=== PATIENT | male | born 1945 | race Caucasian/White ===

== ENCOUNTER 2020-05-31 13:53 | Outpatient (CLI) | payer MEDICARE, OTHER, SELFPAY ==
--- NOTE | ~2020-05-31 | CT_ITS ---
EXAMINATION:CT lung screening DATE: 05/31/2020 14:20 INDICATION: Personal history of tobacco dependence. Former smoker with 60 pack year history. TECHNIQUE: Computed tomography (CT) of the chest was performed without intravenous contrast. Automate d exposure control and iterative reconstruction technique were employed. The dose-length product (DLP ) was 225.67 mGy-cm. COMPARISON: None. FINDINGS: There is no pulmonary nodule or pleural effusion. The heart size is normal. There are coron talia artery calcifications. No pericardial effusion. There are no pathologically enlarged lymph nodes. There are bridging endplate osteophytes at multiple levels in the spine, consistent with diffuse idi opathic skeletal hyperostosis (DISH). IMPRESSION: 1. Lung-RADS category 1: Negative. Reviewed, dictated and finalized at location A.
== END 2020-05-31 13:54 | disposition home or self-care (01) ==
LOC: ANHIMG 13:59
PROVIDERS: PCP Internal Medicine; Visit Provider Clinical Nurse Specialist
DX: Z12.2 Encounter for screening for malignant neoplasm of respiratory organs (principal); Z87.891 Personal history of nicotine dependence
CPT/HCPCS: G0297

== ENCOUNTER → 2020-11-17 10:53 | Outpatient (CLI) | payer MEDICARE, OTHER, SELFPAY ==
--- NOTE | ~2020-11-17 | US_ITS ---
EXAMINATION: US aorta DATE: 11/17/2020 11:12 INDICATION: Abdominal aortic aneurysm. TECHNIQUE: Grayscale, color Doppler, and pulsed Doppler images of the aorta and common iliac arteries were obtained. COMPARISON: Ultrasound 11/09/2019 FINDINGS: The aorta demonstrates a 4.8 cm fusiform infrarenal aneurysm. The right common iliac artery measures 2.0 cm. The left common iliac artery measures 1.7 cm. IMPRESSION: 1. 4.8 cm fusiform infrarenal aortic aneurysm, stable from 11/09/2019. Reviewed, dictated and finalized at location A. [employer]YMENT INSTRUCTIONAL ASSOCIATE
== END ==
PROVIDERS: PCP Internal Medicine; Visit Provider Internal Medicine Cardiovascular Disease
DX: I71.4 Abdominal aortic aneurysm, without rupture (principal); E78.2 Mixed hyperlipidemia; I10 Essential (primary) hypertension
CPT/HCPCS: 76775

== ENCOUNTER 2021-03-30 16:29 | Outpatient (CLI) | payer MEDICARE, OTHER, SELFPAY ==
--- NOTE | ~2021-03-30 | MR_ITS ---
EXAMINATION: MR lumbar spine wo con EXAM DATE: 03/30/2021 17:20 INDICATION: M54.40 - Lumbago with sciatica, unspecified side . Right-sided spasm and pain. TECHNIQUE: Multi-sequential, multiplanar MR images of the lumbar spine were obtained without contrast . Sagittal T1, T2, T2 fat saturation images. Axial T2 weighted images. There is no prior study for comparison. FINDINGS: Mild lumbar levoscoliosis. There is transitional lumbosacral segment designated S1 with a r udimentary S1-S2 disc. There is moderate disc disease at L1-2, mild to moderate at L2-3, moderate to severe L3-S1. There is 3 mm retrolisthesis L2 on L3, 4 mm retrolisthesis L3 on L4, 2 mm retrolisthesi s L4 on L5 and L5 on S1. Mild diffuse loss of lumbar vertebral body heights, with mild edema at the L 5 superior endplate which could indicate acute or subacute component to this compression. Lower abdom inal aortic aneurysm, imaged portion measuring by 5.1 cm transverse dimension. Level by level evaluation: L1-L2: There is a mild diffuse disc bulge. Facet arthropathy: Mild. Neural foraminal stenosis: Mild bilateral. Central canal stenosis: Mild. L2-L3: There is a mild to moderate diffuse disc bulge. Facet arthropathy: Mild. Neural foraminal stenosis: Mild to moderate left. Central canal stenosis: Mild. L3-L4: There is a moderate diffuse disc bulge. Facet arthropathy: Moderate . Ligamentum flavum enlargement. Neural foraminal stenosis: Moderate bilateral. Central canal stenosis: Moderate. L4-L5: There is a moderate diffuse disc bulge. Facet arthropathy: Moderate. Neural foraminal stenosis: Moderate bilateral, right greater than left. Central canal stenosis: Mild to moderate. L5-S1: There is a moderate diffuse disc bulge. Facet arthropathy: Moderate. Neural foraminal stenosis: Moderate bilateral. Central canal stenosis: Moderate. IMPRESSION: 1. Mild loss of all vertebral body heights with L5 right-sided edema could indicate acute or subacut e compression fracture. 2. Incidental abdominal aortic aneurysm measuring 5.1 cm, correlate with prior ultrasound reports. 3. Moderate to severe lower lumbar disc disease, spondylosis as detailed above. Reviewed, dictated and finalized at location B. IMPRESSION: 1. Mild loss of all vertebral body heights with L5 right-sided edema could ind icate acute or subacute compression fracture. 2. Incidental abdominal aortic aneurysm measuring 5.1 cm, correlate with prior ultrasound reports. 3. Moderate to severe lower lumbar disc disease, spondylosis as detailed above .
== END 2021-03-30 16:30 | disposition home or self-care (01) ==
LOC: ANHIMG 16:42
PROVIDERS: PCP Internal Medicine; Visit Provider Nurse Practitioner
DX: M54.40 Lumbago with sciatica, unspecified side (principal); M51.36 Other intervertebral disc degeneration, lumbar region; M47.896 Other spondylosis, lumbar region
CPT/HCPCS: 72148

== ENCOUNTER 2021-11-28 07:36 | Outpatient (CLI) | payer MEDICARE, OTHER, SELFPAY ==
--- NOTE | ~2021-11-28 | US_ITS ---
EXAMINATION: US aorta DATE: 11/28/2021 08:29 INDICATION: Abdominal aortic aneurysm. TECHNIQUE: Grayscale, color Doppler, and pulsed Doppler images of the aorta and common iliac arteries were obtained. COMPARISON: Ultrasound 11/17/2020, lumbar spine MRI 03/30/2021 FINDINGS: The aorta demonstrates a 4.9 cm fusiform infrarenal aneurysm. The right common iliac artery measures 1.6 cm. The left common iliac artery measures 1.5 cm. IMPRESSION: 1. 4.9 cm fusiform infrarenal aortic aneurysm, stable from 11/17/2020. Reviewed, dictated and finalized at location A. WAY SIGNAL OPERATOR
== END 2021-11-28 07:37 | disposition home or self-care (01) ==
LOC: ANHIMG 07:40
PROVIDERS: PCP Internal Medicine; Visit Provider Internal Medicine Cardiovascular Disease
DX: I71.4 Abdominal aortic aneurysm, without rupture (principal)
CPT/HCPCS: 76775

== ENCOUNTER 2021-12-27 13:23 | Outpatient (CLI) | payer MEDICARE, OTHER, SELFPAY ==
--- NOTE | ~2021-12-27 | CT_ITS ---
EXAMINATION:CT lung screening DATE: 12/27/2021 13:44 INDICATION: Personal history of nicotine dependence. 60 pack year history. TECHNIQUE: Computed tomography (CT) of the chest was performed without intravenous contrast. Automate d exposure control and iterative reconstruction technique were employed. The dose-length product (DLP ) was 324.57 mGy-cm. COMPARISON: Chest CT 05/31/2020 FINDINGS: Again seen is a 4 mm nodule at minor fissure. There is no pneumonia or pleural effusion. Th ere is left atrial enlargement of the heart. There are coronary artery calcifications. No pericardial effusion. There is 14 degrees dextroscoliosis of upper thoracic spine. There are bridging endplate o steophytes at multiple levels in the spine, consistent with diffuse idiopathic skeletal hyperostosis (DISH). IMPRESSION: 1. Lung-RADS category 2: Benign appearance or behavior. Reviewed, dictated and finalized at location A.
== END 2021-12-27 13:24 | disposition home or self-care (01) ==
LOC: ANHIMG 13:28
PROVIDERS: PCP Internal Medicine; Visit Provider Nurse Practitioner
DX: Z87.891 Personal history of nicotine dependence (principal)
CPT/HCPCS: 71271

== ENCOUNTER → 2022-11-22 11:28 | Outpatient (CLI) | payer MEDICARE, OTHER, SELFPAY ==
--- NOTE | ~2022-11-22 | XR_ITS ---
AP and lateral views of the left scapula CLINICAL HISTORY: Scapular pain FINDINGS: No fracture identified. There is moderate to advanced degenerative change at the AC joint. Glenohumeral joint is grossly unremarkable. Soft tissues are unremarkable. IMPRESSION: Moderate to advanced AC joint degenerative change. No fracture or dislocation seen. Reviewed, dictated and finalized at [facility]. [facility]
== END ==
PROVIDERS: PCP Nurse Practitioner; Visit Provider Clinical Nurse Specialist
DX: M19.012 Primary osteoarthritis, left shoulder (principal)
CPT/HCPCS: 73010

== ENCOUNTER 2022-12-24 09:05 | Outpatient (CLI) | payer MEDICARE, OTHER, SELFPAY ==
--- NOTE | ~2022-12-24 | US_ITS ---
EXAMINATION: US aorta DATE: 12/24/2022 09:43 INDICATION: Abdominal aortic aneurysm TECHNIQUE: Grayscale, color Doppler, and pulsed Doppler images of the aorta and common iliac arteries were obtained. COMPARISON: None. FINDINGS: The proximal aorta measures 2.9 cm. The mid aorta measures 2.7 cm. Fusiform aneurysm in the distal ao rta measuring up to 4.9 cm maximal diameter. The right common iliac artery measures 1.6 cm. The left common iliac artery measures 1.5 cm. IMPRESSION: 1. No interval change in a 4.9 cm fusiform infrarenal abdominal aortic aneurysm Reviewed, dictated and finalized at location B.
== END 2022-12-24 09:06 | disposition home or self-care (01) ==
PROVIDERS: PCP Internal Medicine; Visit Provider Internal Medicine Cardiovascular Disease
DX: I71.40 Abdominal aortic aneurysm, without rupture, unspecified (principal)
CPT/HCPCS: 76775

== ENCOUNTER 2023-04-26 13:27 | Outpatient (CLI) | payer MEDICARE, OTHER, SELFPAY ==
--- NOTE | ~2023-04-26 | CT_ITS ---
EXAMINATION: CT lung screening DATE: 04/26/2023 14:46 INDICATION: Personal history of nicotine dependence, prior smoker with 60 pack year history TECHNIQUE: Computed tomography (CT) of the chest was performed without intravenous contrast. The dose -length product (DLP) was 387.92 mGy-cm. Automated exposure control and iterative reconstruction tech [employer] were employed. COMPARISON: 12/27/2021 FINDINGS: Again noted is a 4 mm fissural lymph node of the minor fissure. No suspicious pulmonary nod ules are identified. The lungs are free of acute opacities. No pleural effusion or pneumothorax. Ther e is left atrial enlargement of the heart. Calcified coronary artery atherosclerosis is noted. There are bridging osteophytes at multiple levels in the spine, consistent with diffuse idiopathic skeletal hyperostosis (DISH). IMPRESSION: 1. Lung-RADS category 2: Benign appearance or behavior. Continue annual screening with noncontrast lo w-dose chest CT in 12 months. Reviewed, dictated and finalized at location B. IMPRESSION: 1. Lung-RADS category 2: Benign appearance or behavior. Continue annual screeni ng with noncontrast low-dose chest CT in 12 months.
== END 2023-04-26 13:28 | disposition home or self-care (01) ==
PROVIDERS: PCP Internal Medicine; Visit Provider Nurse Practitioner
DX: Z12.2 Encounter for screening for malignant neoplasm of respiratory organs (principal); Z87.891 Personal history of nicotine dependence
CPT/HCPCS: 71271

== ENCOUNTER 2024-01-29 09:29 | Outpatient (CLI) | payer MEDICARE, OTHER, SELFPAY ==
--- NOTE | ~2024-01-29 | US_ITS ---
EXAMINATION: US aorta DATE: 01/29/2024 10:56 CDT INDICATION: Abdominal aortic aneurysm TECHNIQUE: Grayscale, color Doppler, and pulsed Doppler images of the aorta and common iliac arteries were obtained. COMPARISON: Ultrasound dated 12/24/2022. FINDINGS: The proximal aorta measures 2.8 cm greatest sagittal dimension. The mid aorta measures 2.9 cm greates t sagittal dimension. The distal aorta measures 5.1 cm greatest sagittal dimension. The right common internal iliac artery measures 1.5 cm. The left common iliac artery measures 1.5 cm. IMPRESSION: 1. Slight enlargement of fusiform infrarenal abdominal aortic aneurysm measuring 5.1 cm. Reviewed, dictated and finalized at location B. IMPRESSION: 1. Slight enlargement of fusiform infrarenal abdominal aortic aneurysm measurin g 5.1 cm.
== END 2024-01-29 09:30 | disposition home or self-care (01) ==
PROVIDERS: PCP Internal Medicine; Visit Provider Internal Medicine Cardiovascular Disease
DX: I71.40 Abdominal aortic aneurysm, without rupture, unspecified (principal)
CPT/HCPCS: 76775

== ENCOUNTER 2024-06-17 12:48 | Outpatient (CLI) | payer MEDICARE, OTHER, SELFPAY ==
--- NOTE | ~2024-06-17 | XR_ITS ---
Lumbosacral Spine: AP, oblique, and lateral views Clinical History: Pain Findings: The normal lordotic curve is maintained. No fracture evident. There is 6 mm retrolisthesis of L2 over L3. There is severe degenerative disc 9 L2-L3, with moderate degenerative disc narrowing t he remainder of the lumbar spine. There are extensive anterior ossified. There is severe facet arthro loreto throughout the lumbar spine. The sacroiliac joints are normally outlined. Aortic stent graft pr esent. Impression: Severe degenerative spondylosis with 6 mm retrolisthesis of L2 over L3. Aortic stent graft in place. Reviewed, dictated and finalized at location . Impression: Severe degenerative spondylosis with 6 mm retrolisthesis of L2 over L3. Aortic stent graft in place.
== END 2024-06-17 12:49 | disposition home or self-care (01) ==
PROVIDERS: PCP Internal Medicine; Visit Provider Nurse Practitioner
DX: M47.896 Other spondylosis, lumbar region (principal)
CPT/HCPCS: 72110

== ENCOUNTER 2024-07-08 02:43 | Day surgery (SDC) | payer MEDICARE, OTHER, SELFPAY ==
[2024-06-30 12:21] VITALS: BMI 34.4
--- NOTE | 2024-06-30 13:07 | PC.NURSE ---
Spoke with PATIENT regarding medication XARELTO. Pt. verbalizes understanding that the last dose of XARELTO is to be taken on 07/05/24 and the Endoscopist will instruct them when to restart after the procedure.
--- NOTE | 2024-07-03 14:19 | PC.NURSE ---
Spoke with patient regarding medication Xarelto. Pt. verbalizes understanding that the last dose of Xarelto is to be taken on 07/05/2024 and the Endoscopist will instruct them when to restart after the procedure.
[2024-07-08 10:20] VITALS: BP 134/78; PULSE 91; RESP 18; TEMP 36.2; O2SAT 97; BMI 34.0
[2024-07-08] MEDS: LACTATED RINGERS 1,000 ML 150 ML IV CONT (10:40)
[2024-07-08 10:49] LABS: Glucose Point of Care 167 mg/dl (65-105)
--- NOTE | 2024-07-08 10:50 | PM.HPGS ---
History of Present Illness History of Present Illness Consent: Risks, benefits, and alternatives have been discussed and questions answered. Patient agrees to proceed with procedure. 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 Type 2 diabetes mellitus Vertigo Surgical History Surgical History H/O cataract extraction History of bunionectomy 2002 History of cardiac cath (~04/2024) 05/06/24 History of hip replacement S/P aneurysm repair with 3 stents 06/01/24 Family History Family History Mother Family history of throat cancer Father Cerebrovascular accident Sibling Dementia Social History Social History Smoking packs per day: 1.5 Smoking cigarettes per day: 30.0 Years smoked: 33 Smoking pack-years: 49.50 Smoking status: Former smoker Smoking end date: 10/14/97 Alcohol intake: current Drinks per week: 14 Alcohol use details: BEERS OR WINE Substance use: never Substance use type: does not use Living arrangements: with family Spiritual care concerns: No Meds Home Medications and Allergies Home Medications Medication Instructions Recorded Confirmed Type cyanocobalamin (vitamin B-12) 1,000 mcg PO DAILY 10/02/19 07/08/24 History 1,000 mcg capsule rivaroxaban 20 mg tablet (Xarelto) 20 mg PO QPM 10/02/19 07/08/24 History acetaminophen 325 mg tablet 650 mg PO Q6H PRN Pain 03/22/21 07/08/24 History (Tylenol) FreeStyle Lite Strips (blood sugar #100 ea 05/09/22 07/08/24 Rx diagnostic) hydrochlorothiazide 25 mg tablet See Rx Instructions .Route 09/04/22 07/08/24 Rx .COMPLEX #90 tabs metformin 1,000 mg tablet See Rx Instructions .Route 01/04/23 07/08/24 Rx .COMPLEX #180 tabs amlodipine 5 mg tablet 5 mg PO DAILY #90 tabs 04/04/23 07/08/24 Rx lisinopril 40 mg tablet See Rx Instructions .Route 06/21/23 07/08/24 Rx .COMPLEX #90 tabs cholecalciferol (vitamin D3) 25 25 mcg PO DAILY 08/26/23 07/08/24 History mcg (1,000 unit) capsule ezetimibe 10 mg tablet 10 mg PO DAILY 10/23/23 07/08/24 History simvastatin 40 mg tablet 40 mg PO DAILY 10/23/23 07/08/24 History pioglitazone 15 mg tablet 15 mg PO DAILY 02/26/24 07/08/24 History cyclobenzaprine 10 mg tablet 10 mg PO BID PRN muscle spasm #30 06/18/24 07/08/24 Rx tabs sulfamethoxazole 800 1 tablet PO Q12H #10 tabs 06/29/24 07/08/24 Rx mg-trimethoprim 160 mg tablet (Bactrim DS) empagliflozin 25 mg tablet 25 mg PO DAILY 06/30/24 07/08/24 History (Jardiance) sildenafil 100 mg tablet (Viagra) 100 mg PO DAILY PRN Sexual Activity 06/30/24 07/08/24 History Allergies Allergy/AdvReac Type Severity Reaction Status Date / Time No Known Allergies Allergy Verified 07/08/24 10:23 Vital Signs Vital Signs - 24 hr 07/08/24 10:20 Temperature 97.1 F L Pulse Rate 91 Respiratory Rate 18 Blood Pressure 134/78 Pulse Oximetry 97 Oxygen Delivery Room Air Exam Const: General: comfortable and no acute distress HENMT: Face/Nose/Sinus: Normal nares present Eyes: General: appearance normal, both eyes and all related structures Neck: Neck: no JVD Resp: Auscultation: clear to auscultation bilaterally Cardio: Rate: regular rate Rhythm: regular rhythm GI: Inspection: non-distended GI Palp: Yes Soft to palpation Skin: General skin exam: normal color Neuro: General: ga
--- NOTE | 2024-07-08 10:52 | WPDANESEPPF ---
Anes - Initial Pre Proc Eval Procedure: Operation Date: 07/08/24 11:30 Proposed Procedures p Screening Colonoscopy - Surinder Funez MD Date/Time: 07/08/24 10:52 Surgeon: Surinder Funez MD Pre Op Diagnosis: neoplasm screening Patient Data Age: 78 Gender: M Height: 1.78 m Weight: 107.4 kg Last Vital Signs Temp 97.1 F L 07/08/24 10:20 Pulse 91 07/08/24 10:20 Resp 18 07/08/24 10:20 BP 134/78 07/08/24 10:20 Pulse Ox 97 07/08/24 10:20 O2 Del Method Room Air 07/08/24 10:20 Allergies Allergy/AdvReac Type Severity Reaction Status Date / Time No Known Allergies Allergy Verified 07/08/24 10:23 Home Medications Medication Instructions Recorded Confirmed Type cyanocobalamin (vitamin B-12) 1,000 mcg PO DAILY 10/02/19 07/08/24 History 1,000 mcg capsule rivaroxaban 20 mg tablet (Xarelto) 20 mg PO QPM 10/02/19 07/08/24 History acetaminophen 325 mg tablet 650 mg PO Q6H PRN Pain 03/22/21 07/08/24 History (Tylenol) FreeStyle Lite Strips (blood sugar #100 ea 05/09/22 07/08/24 Rx diagnostic) hydrochlorothiazide 25 mg tablet See Rx Instructions .Route 09/04/22 07/08/24 Rx .COMPLEX #90 tabs metformin 1,000 mg tablet See Rx Instructions .Route 01/04/23 07/08/24 Rx .COMPLEX #180 tabs amlodipine 5 mg tablet 5 mg PO DAILY #90 tabs 04/04/23 07/08/24 Rx lisinopril 40 mg tablet See Rx Instructions .Route 06/21/23 07/08/24 Rx .COMPLEX #90 tabs cholecalciferol (vitamin D3) 25 25 mcg PO DAILY 08/26/23 07/08/24 History mcg (1,000 unit) capsule ezetimibe 10 mg tablet 10 mg PO DAILY 10/23/23 07/08/24 History simvastatin 40 mg tablet 40 mg PO DAILY 10/23/23 07/08/24 History pioglitazone 15 mg tablet 15 mg PO DAILY 02/26/24 07/08/24 History cyclobenzaprine 10 mg tablet 10 mg PO BID PRN muscle spasm #30 06/18/24 07/08/24 Rx tabs sulfamethoxazole 800 1 tablet PO Q12H #10 tabs 06/29/24 07/08/24 Rx mg-trimethoprim 160 mg tablet (Bactrim DS) empagliflozin 25 mg tablet 25 mg PO DAILY 06/30/24 07/08/24 History (Jardiance) sildenafil 100 mg tablet (Viagra) 100 mg PO DAILY PRN Sexual Activity 06/30/24 07/08/24 History Laboratory Tests 07/08/24 10:47 POC Capillary Glucose 167 H mg/dl (65-105) Patient hx anesthesia problems: none Family hx anesthesia problems: none Results Review: All pre-operative results and documents have been reviewed as part of the pre-operative evaluation. 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 Type 2 diabetes mellitus Vertigo Surgical History Surgical History H/O cataract extraction History of bunionectomy 2002 History of cardiac cath (~04/2024) 05/06/24 History of hip replacement S/P aneurysm repair with 3 stents 06/01/24 Family History Family History Mother Family history of throat cancer Father Cerebrovascular accident Sibling Dementia Social History Social History Smoking packs per day: 1.5 Smoking cigarettes per day: 30.0 Years smoked: 33 Smoking pack-years: 49.50 Smoking status: Former smoker Smoking end date: 10/14/97 Alcohol intake: current Drinks per week: 14 Alcohol use details: BEERS OR WINE Substance use: never Substance use type: does not use Living arrangements: with family Spiritual care concerns: No Anes - Eval Final PreProcedure Day of Procedure 07/08/24 10:53 Patient weight: obese Heart: regular rate and rhythm Lungs: clear to auscultation Airway: Mallampati scale class II Neurological: alert and oriented Last oral intake: >/
[2024-07-08 11:16] VITALS: BP 121/74; PULSE 82; RESP 11; O2SAT 97
[2024-07-08 11:26] VITALS: BP 115/75; PULSE 79; RESP 18; O2SAT 98
[2024-07-08 11:36] VITALS: BP 125/87; PULSE 79; RESP 17; O2SAT 98
== END 2024-07-08 12:00 | disposition home or self-care (01) ==
PROVIDERS: PCP Internal Medicine; Referring Provider Nurse Practitioner; Visit Provider Internal Medicine Gastroenterology
PROC: 0DJD8ZZ Inspection of Lower Intestinal Tract, Via Natural or Artificial Opening Endoscopic (ICD-10-PCS; CPT 45378; principal; 2024-07-08 11:30)
DX: Z12.11 Encounter for screening for malignant neoplasm of colon (principal); D12.3 Benign neoplasm of transverse colon; K57.30 Diverticulosis of large intestine without perforation or abscess without bleeding; I48.91 Unspecified atrial fibrillation; E78.5 Hyperlipidemia, unspecified; I10 Essential (primary) hypertension; E11.9 Type 2 diabetes mellitus without complications; Z95.1 Presence of aortocoronary bypass graft; Z87.891 Personal history of nicotine dependence; E66.9 Obesity, unspecified; Z68.34 Body mass index [BMI] 34.0-34.9, adult; Z79.84 Long term (current) use of oral hypoglycemic drugs; Z79.01 Long term (current) use of anticoagulants
CPT/HCPCS: 45385; 82948; 88305; J2001; J2704; J7120

== ENCOUNTER 2024-11-25 11:53 | Emergency (ER) | payer MEDICARE, OTHER, SELFPAY ==
--- NOTE | 2024-11-25 12:02 | ED.URI ---
HPI - URI/Sore Throat General Chief Complaint: Upper Respiratory Infection Stated Complaint: Upper Respiratory Symptoms Time Seen by Provider: 11/25/24 12:02 Source: patient and RN notes reviewed Mode of arrival: ambulatory Limitations: no limitations History of Present Illness HPI Narrative: 78-year-old male history of AFib and diabetes presented for complaint of cough and chest congestion for over one week. Endorses fatigue, wheezing, and pain in ribs from coughing. Pt also endorses intermittent vomiting has resolved. Taking Dayquil and Mucinex. MD elicited complaint: cough Related Data Home Medications ?Medication ?Instructions ?Recorded ?Confirmed ?Last Taken ?Type cyanocobalamin (vitamin B-12) 1,000 mcg PO DAILY 10/02/19 11/03/24 Unknown History 1,000 mcg capsule rivaroxaban 20 mg tablet (Xarelto) 20 mg PO QPM 10/02/19 11/03/24 07/05/24 History acetaminophen 325 mg tablet 650 mg PO Q6H PRN Pain 03/22/21 11/03/24 Unknown History (Tylenol) cholecalciferol (vitamin D3) 25 25 mcg PO DAILY 08/26/23 11/03/24 Unknown History mcg (1,000 unit) capsule ezetimibe 10 mg tablet 10 mg PO DAILY 10/23/23 11/03/24 Unknown History simvastatin 40 mg tablet 40 mg PO DAILY 10/23/23 11/03/24 Unknown History pioglitazone 15 mg tablet 15 mg PO DAILY 02/26/24 11/03/24 Unknown History empagliflozin 25 mg tablet 25 mg PO DAILY 06/30/24 11/03/24 Unknown History (Jardiance) sildenafil 100 mg tablet (Viagra) 100 mg PO DAILY PRN Sexual Activity 06/30/24 11/03/24 Unknown History Allergies Allergy/AdvReac Type Severity Reaction Status Date / Time No Known Allergies Allergy Verified 11/25/24 11:55 Review of Systems Review of Systems: per HPI [facility] Past Medical History Medical History 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 Vertigo Back pain Atrial fibrillation Type 2 diabetes mellitus Hypertension Hyperlipidemia Surgical History Surgical History S/P aneurysm repair with 3 stents 06/01/24 History of cardiac cath (~04/2024) 05/06/24 H/O cataract extraction History of hip replacement History of bunionectomy BL 2002 Family History Family History Mother Family history of throat cancer Father Cerebrovascular accident Sibling Dementia Social History Social History Smoking packs per day: 1.5 Smoking cigarettes per day: 30.0 Years smoked: 33 Smoking pack-years: 49.50 Smoking status: Former smoker Smoking end date: 10/14/97 Alcohol intake: current Drinks per week: 14 Alcohol use details: BEERS OR WINE Substance use: never Substance use type: does not use Living arrangements: with family Spiritual care concerns: No Exam Narrative: GENERAL: mildly ill-appearing EYES: PERRLA, conjunctivae clear ENT: Mucous membranes moist. TM pearly hebert with dull light reflex bilaterally; no tragal tenderness. no drooling, no hoarseness, no trismus, uvula midline. No tripod positioning, muffled voice, soft palate or pharyngeal wall bulging NECK: Supple. No lymphadenopathy CHEST: Lungs coarse with scattered wheezing. No respiratory distress, speaks in full sentences. Even and unlabored. HEART: Regular rate and rhythm. No murmur heard. SKIN: Warm, dry, no rash. NEURO: Alert and oriented x3. PSYCH: Normal mood and affect Course Course Emergency Course: Patient is aware of diagnosis, understands and agrees to treatment plan. Anticipatory guidance given. Patient agrees to follow-up as directed and is aware of reasons to seek care at the emergency department. Portions of this record may have been created with voice recognition software Level of Care: Express Care Visit Vital Signs Vital signs: Vital Signs Temperature 98.2 F 11/25/24 12:04 Pulse Rate 82 11/25/24 12:04 Respiratory Rate 16 11/25/24 12:04 Blood Pressure 118/74 11/25/24 12:04 Pulse Oximetry 98 11/25/24 12:04 Temperature 98.2 F 11/25/24 12:04 Pulse Rate 82 11/25/24 12:04 Respiratory Rate 16 11/25/24 12:04 Blood Pressure 118/74 11/25/24 12:04 Pulse Oximetry 98 11/25/24 12:04 reviewed MDM - URI/Sore Throat MDM Narrative Medical decision making narrative: Discussed physical exam findings, reviewed RX. Aware prednisone may increase BS. Advised supportive measures and signs/symptoms to go to the ER. Pt is appropriate for outpt treatment and f/u. Differential Diagnosis Differential diagnosis: Likely upper respiratory infection, sinusitis, viral infection and bronchitis Discharge Plan Discharge Clinical Impression: Bronchitis Patient Disposition: Home, Self-Care Condition: Stable Instructions: Antibiotic Form, Acute Bronchitis (ED) Additional Instructions: Acute bronchitis can be contagious because it is usually caused by infection with a virus or bacteria. It is usually for a few days but you can be contagious for up to one week. Avoid crowds until you do not have a fever and symptoms are improved Take medication as directed Albuterol inhaler every 4-6 hours for shortness of breath/wheezing Flonase spray and Zyrtec (or Claritin/Josi) for nasal congestion/drainage over the counter Cough syrup may cause drowsiness; avoid driving or take it at night time. Coricidin HBP if you have hypertension Tylenol 1000mg every 8 hours as needed for pain Rest, fluids, and increase humidity of the air at home. Follow up with your primary care provider as needed Go to the ER for worsening symptoms or concerns Patient Language: Zimbabwean Prescriptions: New benzonatate 200 mg capsule 200 mg PO TID PRN (Reason: cough) Qty: 20 0RF prednisone 50 mg tablet 50 mg PO DAILY Qty: 5 0RF albuterol sulfate 90 mcg/actuation HFA aerosol inhaler 2 inh inhalation QID PRN (Reason: shortness of breath or wheezing) Qty: 8.5 0RF No Action cyanocobalamin (vitamin B-12) 1,000 mcg capsule 1,000 mcg PO DAILY Xarelto 20 mg tablet 20 mg PO QPM acetaminophen [Tylenol] 325 mg tablet 650 mg PO Q6H MDD \ PRN (Reason: Pain) cholecalciferol (vitamin D3) 25 mcg (1,000 unit) capsule 25 mcg PO DAILY pioglitazone 15 mg tablet 15 mg PO DAILY simvastatin 40 mg tablet 40 mg PO DAILY ezetimibe 10 mg tablet 10 mg PO DAILY sildenafil [Viagra] 100 mg Tablet 100 mg PO DAILY PRN (Reason: Sexual Activity) Rx Instructions: administer 30 minutes to 4 hours before activity Jardiance 25 mg Tablet 25 mg PO DAILY (DME) FreeStyle Lite Strips Strip See Rx Instructions .ROUTE .MEDSUPPLY Qty: 100 3RF Rx Instructions: Use to test BS BID hydrochlorothiazide 25 mg tablet See Rx Instructions .ROUTE .COMPLEX Qty: 90 3RF Dose Instruction: TAKE 1 TABLET DAILY Rx Instructions: TAKE 1 TABLET DAILY metformin 1,000 mg tablet See Rx Instructions .ROUTE .COMPLEX Qty: 180 1RF Dose Instruction: TAKE 1 TABLET TWICE A DAY Rx Instructions: TAKE 1 TABLET TWICE A DAY amlodipine 5 mg tablet 5 mg PO DAILY Qty: 90 1RF lisinopril 40 mg tablet See Rx Instructions .ROUTE .COMPLEX Qty: 90 1RF Dose Instruction: TAKE 1 TABLET DAILY Rx Instructions: TAKE 1 TABLET DAILY cyclobenzaprine 10 mg tablet 10 mg PO BID PRN (Reason: muscle spasm) Qty: 30 1RF Follow-up/Referrals: PHYSICIAN,[employer]TER[employer] INSPECTOR [employer] TE[employer] [Primary Care Provider] - Time of Disposition: 12:15
[2024-11-25 12:04] VITALS: BP 118/74; PULSE 82; RESP 16; TEMP 36.8; O2SAT 98
== END 2024-11-25 12:18 | disposition home or self-care (01) ==
PROVIDERS: Emergency Provider Nurse Practitioner Family
DX: J40 Bronchitis, not specified as acute or chronic (principal); Z87.891 Personal history of nicotine dependence; I48.91 Unspecified atrial fibrillation; E11.9 Type 2 diabetes mellitus without complications; Z79.84 Long term (current) use of oral hypoglycemic drugs; I10 Essential (primary) hypertension; E78.5 Hyperlipidemia, unspecified; I25.10 Atherosclerotic heart disease of native coronary artery without angina pectoris
CPT/HCPCS: 99213; G0463

== ENCOUNTER 2024-12-08 11:40 | Emergency (ER) | payer MEDICARE, OTHER, SELFPAY ==
[2024-12-08 11:52] VITALS: BP 103/64; PULSE 87; RESP 16; TEMP 36.6; O2SAT 100
--- NOTE | 2024-12-08 12:43 | ED_ITS ---
HPI - Male Genitourinary General Chief complaint: Urogenital-Male Stated complaint: Uti Symptoms Source: patient and RN notes reviewed Mode of arrival: ambulatory Limitations: no limitations History of Present Illness HPI Narrative: 78-year-old male with a history of AFib and diabetes presented for complaint of urinary frequency, hematuria, and chills. Says he is scheduled to have urology procedure for chronic hematuria on 12/15/2024. Endorses occasional urinary incontinence. at bedside also reports he has ?bedsores. ? They have been applying cream from family who also had bedsores. Denies nausea, vomiting, abdominal pain, flank pain, constipation, diarrhea, fevers or chills. Related Data Home Medications ?Medication ?Instructions ?Recorded ?Confirmed ?Last Taken ?Type cyanocobalamin (vitamin B-12) 1,000 mcg PO DAILY 10/02/19 12/07/24 Unknown History 1,000 mcg capsule rivaroxaban 20 mg tablet (Xarelto) 20 mg PO QPM 10/02/19 12/07/24 07/05/24 History acetaminophen 325 mg tablet 650 mg PO Q6H PRN Pain 03/22/21 12/07/24 Unknown History (Tylenol) cholecalciferol (vitamin D3) 25 25 mcg PO DAILY 08/26/23 12/07/24 Unknown History mcg (1,000 unit) capsule ezetimibe 10 mg tablet 10 mg PO DAILY 10/23/23 12/07/24 Unknown History simvastatin 40 mg tablet 40 mg PO DAILY 10/23/23 12/07/24 Unknown History pioglitazone 15 mg tablet 15 mg PO DAILY 02/26/24 12/07/24 Unknown History empagliflozin 25 mg tablet 25 mg PO DAILY 06/30/24 12/07/24 Unknown History (Jardiance) sildenafil 100 mg tablet (Viagra) 100 mg PO DAILY PRN Sexual Activity 06/30/24 12/07/24 Unknown History Allergies Allergy/AdvReac Type Severity Reaction Status Date / Time No Known Allergies Allergy Verified 12/08/24 11:53 Review of Systems Review of Systems: CONSTITUTIONAL: Denies body aches, fever, chills, or sweats. CARDIOVASCULAR: Denies chest pain, palpitations, or edema. RESPIRATORY: Denies cough or dyspnea. GASTROINTESTINAL: Denies abdominal pain, nausea, vomiting, or diarrhea. GENITOURINARY: Reports frequency, urgency, hematuria, denies flank pain SKIN: Reports wounds. MUSCULOSKELETAL: Denies back pain or myalgia. 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 Vertigo Back pain Atrial fibrillation Type 2 diabetes mellitus Hypertension Hyperlipidemia Surgical History Surgical History S/P aneurysm repair with 3 stents 06/01/24 History of cardiac cath (~04/2024) 05/06/24 H/O cataract extraction History of hip replacement History of bunionectomy 2002 Family History Family History Mother Family history of throat cancer Father Cerebrovascular accident Sibling Dementia Social History Social History Smoking packs per day: 2 Smoking cigarettes per day: 40.0 Years smoked: 33 Smoking pack-years: 66.00 Smoking status: Former smoker Tobacco type: cigarettes Smoking end date: 10/14/97 Alcohol intake: current Drinks per week: 10 Alcohol use details: WINE AND BEER Substance use: never Substance use type: does not use Living arrangements: with family Spiritual care concerns: No Comments At time of signature, I have reviewed and agree with nursing past medical, surgical, social and family history unless otherwise noted. Please see nursing chart for further information. There is no relevant family history pertinent to the presenting complaint Exam Narrative: GENERAL: Well-appearing ENT: Mucous membranes pink and moist. CHEST: No respiratory distress. Clear to auscultation. HEART: Regular rate and rhythm. ABDOMEN: Soft, nontender, nondistended, normal active bowel sounds. No CVA tenderness SKIN: Warm, dry, left medial buttock with 1cm round area of ulcerated skin consistent with stage II pressure ulcer, no bleeding, Skin to coccyx and buttocks appears red. Left buttock with 2 reddened non blanching round areas approx 3cm diameter. NEURO: No focal deficits. Alert and oriented x3. Gait steady with a cane. PSYCH: Normal affect. . Course Course Emergency Course: Patient is aware of diagnosis, understands and agrees to treatment plan. Anticipatory guidance given. Patient agrees to follow-up as directed and is aware of reasons to seek care at the emergency department. Portions of this record may have been created with voice recognition software Level of Care: Express Care Visit Vital Signs Vital signs: Vital Signs Temperature 97.8 F 12/08/24 11:52 Pulse Rate 87 12/08/24 11:52 Respiratory Rate 16 12/08/24 11:52 Blood Pressure 103/64 12/08/24 11:52 Pulse Oximetry 100 12/08/24 11:52 Temperature 97.8 F 12/08/24 11:52 Pulse Rate 87 12/08/24 11:52 Respiratory Rate 16 12/08/24 11:52 Blood Pressure 103/64 12/08/24 11:52 Pulse Oximetry 100 12/08/24 11:52 Reviewed MDM - Male Genitourinary MDM Narrative Medical decision making narrative: Discussed physical exam findings, supportive care for pressure ulcers and reviewed urine dip. Prescription for Augmentin sent. Advise close follow-up with PCP regarding the pressure ulcer and with Urology regarding UTI. Advised supportive measures and signs/symptoms to go to the ER. Pt is appropriate for outpt treatment and f/u. Differential Diagnosis Differential diagnosis: Likely urinary tract infection and urethritis Lab Data Labs: Lab Results 12/08/24 Range/Units 13:43 POC Urine Color Yellow POC Urine Clarity Cloudy POC Urine pH 5.5 POC Ur Specif [place] 1.020 POC Urine Protein 2+ (Negative) POC Ur Glucose (UA) 2+ (Negative) POC Urine Ketones 2+ (Negative) POC Urine Blood 2+ (Negative) POC Urine Nitrite Positive (Negative) POC Urine Bilirubin Negative (Negative) POC Urine Urobilinogen 0.2 POC U Leukocyte Esteras 1+ (Negative) Discharge Plan Discharge Clinical Impression: UTI (urinary tract infection), Pressure ulcer Patient Disposition: Home, Self-Care Condition: Stable Instructions: Antibiotic Form, Urinary Tract Infection in Men (ED), Pressure I njury (ED) Additional Instructions: Take the antibiotic as prescribed The urine will be sent of for a culture to identify what type of bacteria is causing your infection. If the culture shows that the antibiotic will not get rid of your infection, you will be notified and a new antibiotic will be called in for you. Increase water intake For skin: Remember to stay off the center when seated. Turn or lift hips every 2 hours Continue the cream Keep skin clean and dry you will need to follow up with your PCP, to discuss skin wounds You will need to follow up with urologist, call today. Go to the ER for any worsening symptoms or concerns Patient Language: Egyptian Prescriptions: New amoxicillin-pot clavulanate 875-125 mg tablet 1 tablet PO Q12H 7 Days Qty: 14 0RF No Action benzonatate 200 mg capsule 200 mg PO TID PRN (Reason: cough) Qty: 20 0RF albuterol sulfate 90 mcg/actuation HFA aerosol inhaler 2 inh inhalation QID PRN (Reason: shortness of breath or wheezing) Qty: 8.5 0RF cyanocobalamin (vitamin B-12) 1,000 mcg capsule 1,000 mcg PO DAILY Xarelto 20 mg tablet 20 mg PO QPM acetaminophen [Tylenol] 325 mg tablet 650 mg PO Q6H MDD \ PRN (Reason: Pain) cholecalciferol (vitamin D3) 25 mcg (1,000 unit) capsule 25 mcg PO DAILY pioglitazone 15 mg tablet 15 mg PO DAILY simvastatin 40 mg tablet 40 mg PO DAILY ezetimibe 10 mg tablet 10 mg PO DAILY sildenafil [Viagra] 100 mg Tablet 100 mg PO DAILY PRN (Reason: Sexual Activity) Rx Instructions: administer 30 minutes to 4 hours before activity Jardiance 25 mg Tablet 25 mg PO DAILY (DME) FreeStyle Lite Strips Strip See Rx Instructions .ROUTE .MEDSUPPLY Qty: 100 3RF Rx Instructions: Use to test BS BID hydrochlorothiazide 25 mg tablet See Rx Instructions .ROUTE .COMPLEX Qty: 90 3RF Dose Instruction: TAKE 1 TABLET DAILY Rx Instructions: TAKE 1 TABLET DAILY metformin 1,000 mg tablet See Rx Instructions .ROUTE .COMPLEX Qty: 180 1RF Dose Instruction: TAKE 1 TABLET TWICE A DAY Rx Instructions: TAKE 1 TABLET TWICE A DAY amlodipine 5 mg tablet 5 mg PO DAILY Qty: 90 1RF lisinopril 40 mg tablet See Rx Instructions .ROUTE .COMPLEX Qty: 90 1RF Dose Instruction: TAKE 1 TABLET DAILY Rx Instructions: TAKE 1 TABLET DAILY Follow-up/Referrals: PHYSICIAN,BLOW TORCH BURNER [Primary Care Provider] -
[2024-12-08 13:46] LABS: EDUAAPPEAR Cloudy; EDUABILI Negative (Negative); EDUABLOOD 2+ (Negative); EDUACOLOR1 Yellow; EDUAGLUCOSE 2+ (Negative); EDUAKETONE 2+ (Negative); EDUALEUKO 1+ (Negative); EDUANITRATE Positive (Negative); EDUAPH 5.5; EDUAPROTEIN 2+ (Negative); EDUAUROBILI 0.2
== END 2024-12-08 13:41 | disposition home or self-care (01) ==
PROVIDERS: Emergency Provider Nurse Practitioner Family
DX: N39.0 Urinary tract infection, site not specified (principal); B96.1 Klebsiella pneumoniae [K. pneumoniae] as the cause of diseases classified elsewhere; L89.322 Pressure ulcer of left buttock, stage 2; Z87.891 Personal history of nicotine dependence; I48.91 Unspecified atrial fibrillation; I25.10 Atherosclerotic heart disease of native coronary artery without angina pectoris; E11.9 Type 2 diabetes mellitus without complications; I10 Essential (primary) hypertension; E78.5 Hyperlipidemia, unspecified
CPT/HCPCS: 81003; 87086; 87186; 99213; G0463

== ENCOUNTER 2024-12-10 10:20 | Outpatient (CLI) | payer MEDICARE, OTHER, SELFPAY | END 2024-12-10 10:21 | disposition home or self-care (01) | LOC: ANHSURGERY 10:25 | PROVIDERS: PCP Internal Medicine; Visit Provider Urology | DX: Z01.818 Encounter for other preprocedural examination (principal); I10 Essential (primary) hypertension; I48.91 Unspecified atrial fibrillation; I45.2 Bifascicular block; R94.31 Abnormal electrocardiogram [ECG] [EKG] | CPT/HCPCS: 93005 ==

== ENCOUNTER 2024-12-15 01:06 | Day surgery (SDC) | payer MEDICARE, OTHER, SELFPAY ==
--- NOTE | 2024-12-07 14:51 | PC.NURSE ---
Report to the Outpatient Waiting Room, entrance under the green pavilion located off [facility], at time _6:30AM on date _12/15/24 . Planned Procedure Time: _8:30 AM .? Time changes happen often and if your time is changed the preop area will call you the afternoon before. - You and your visitor will be asked to self-screen and do not enter if you have any COVID symptoms. Please call surgeon if you need to reschedule. - A mask is optional within the hospital at this time. Patients may have clear liquids (water, carbonated beverages, clear teas, apple juice) until 3 hours prior to surgery ( 5:30 AM)with a maximum of 20 ounces. - No food from midnight until time of surgery and no smoking, or chewing tobacco (or any form of nicotine). No chewing gum, candy or mints. - Infants may have breast milk until 4 hours before surgery, infant formula 6 hours prior to surgery. - Children will be allowed to drink immediately following surgery.? If applicable, please bring a bottle or sippy cup to assist with drinking. Juice, water, soda, and popsicles are readily available.? For infants on formula, please bring formula the day of surgery.? Pacifiers are allowed. Take only the following medications with a SIP of water on the morning of surgery: ___INHALER IF NEEDED,AMLODIPINE DO NOT STOP ANY OF YOUR OTHER PRESCRIPTION MEDICATIONS PRIOR TO SURGERY EXCEPT THE FOLLOWING Hold all vitamins and supplements for 3 days per anesthesiologist .12/11/24 Medications to discontinue per physician [facility] PT STATES HOLD 3 DAY PRE OP PER DR SANDOVAL Date to take last dose___12/11/24 Please no make-up, nail kyrgyz, hairspray, perfume, deodorant, or body powder the day of surgery.? No jewelry (including any body piercings) or valuables the day of surgery, leave them at home.? Please take a shower or bath the night before, or the morning of, surgery with an antibacterial soap.? Wear comfortable, loose fitting clothing.? Children are encouraged to wear pajamas. - Jewelry must be removed prior to entering the operating room.? Rings and piercings that are not removed may be cut off. - The hospital will not accept responsibility for valuables.? - Please leave all valuables, including medications, at home the day of surgery. If you are going home after surgery, a licensed team truck driver must drive you home.? - NO public transportation without another adult if you receive anesthesia. - We recommend that an adult stay with you for 24 hours following discharge. - We also recommend that you do not drive, make important decision, drink alcoholic beverages, or take any drugs that were not prescribed by your health care provider for at least 24 hours after your discharge time. Follow any additional instructions given to you from your surgeon. Telephone instructions given to __PATIENT and asked if any additional questions and then verbalized understanding. Patient advised to call surgeon office or pre surgery nurse liaison [phone] if any additional questions.
[2024-12-07 15:27] VITALS: BMI 34.4
[2024-12-15] VITALS (9 sets, daily range): BP systolic 101–130; BP diastolic 63–81; PULSE 61–85; RESP 18–25; TEMP 36.6; O2SAT 95–100
--- NOTE | 2024-12-15 11:10 | WPDHPUPDATE1 ---
History and Physical Update Update Date/Time: 12/15/24 11:10 History and Physical has been reviewed, including an updated exam of the patient. There are NO changes in the patient's condition. Risks, benefits, and alternatives have been discussed and questions answered. Patient agrees to proceed with procedure.
[2024-12-15] MEDS: LACTATED RINGERS 1,000 ML 30 ML IV CONT (11:30)
[2024-12-15 11:38] LABS: Glucose Point of Care 132 mg/dl (65-105)
--- NOTE | 2024-12-15 12:00 | WPDANESEPPF ---
Anes - Initial Pre Proc Eval Procedure: Operation Date: 12/15/24 13:00 Proposed Procedures p Cystoscopy Bladder Biopsy with Fulguration - Michael Huynh MD Date/Time: 12/15/24 12:00 Surgeon: Michael Huynh MD Pre Op Diagnosis: hematuria Patient Data Age: 79 Gender: M Height: 1.78 m Weight: 108.9 kg Allergies Allergy/AdvReac Type Severity Reaction Status Date / Time No Known Allergies Allergy Verified 12/08/24 11:53 Home Medications ?Medication ?Instructions ?Recorded ?Confirmed ?Type cyanocobalamin (vitamin B-12) 1,000 mcg PO DAILY 10/02/19 12/07/24 History 1,000 mcg capsule rivaroxaban 20 mg tablet (Xarelto) 20 mg PO QPM 10/02/19 12/07/24 History acetaminophen 325 mg tablet 650 mg PO Q6H PRN Pain 03/22/21 12/07/24 History (Tylenol) FreeStyle Lite Strips (blood sugar #100 ea 05/09/22 11/03/24 Rx diagnostic) hydrochlorothiazide 25 mg tablet See Rx Instructions .Route 09/04/22 12/07/24 Rx .COMPLEX #90 tabs metformin 1,000 mg tablet See Rx Instructions .Route 01/04/23 12/07/24 Rx .COMPLEX #180 tabs amlodipine 5 mg tablet 5 mg PO DAILY #90 tabs 04/04/23 12/07/24 Rx lisinopril 40 mg tablet See Rx Instructions .Route 06/21/23 12/07/24 Rx .COMPLEX #90 tabs cholecalciferol (vitamin D3) 25 25 mcg PO DAILY 08/26/23 12/07/24 History mcg (1,000 unit) capsule ezetimibe 10 mg tablet 10 mg PO DAILY 10/23/23 12/07/24 History simvastatin 40 mg tablet 40 mg PO DAILY 10/23/23 12/07/24 History pioglitazone 15 mg tablet 15 mg PO DAILY 02/26/24 12/07/24 History empagliflozin 25 mg tablet 25 mg PO DAILY 06/30/24 12/07/24 History (Jardiance) sildenafil 100 mg tablet (Viagra) 100 mg PO DAILY PRN Sexual Activity 06/30/24 12/07/24 History albuterol sulfate 90 mcg/actuation 2 inh inhalation QID PRN shortness 11/25/24 12/07/24 Rx aerosol inhaler of breath or wheezing #8.5 grams benzonatate 200 mg capsule 200 mg PO TID PRN cough #20 caps 11/25/24 12/07/24 Rx amoxicillin 875 mg-potassium 1 tablet PO Q12H 7 days #14 tabs 12/08/24 Rx clavulanate 125 mg tablet Laboratory Tests 12/15/24 11:35 POC Capillary Glucose 132 H mg/dl (65-105) Patient hx anesthesia problems: none Family hx anesthesia problems: none Results Review: All pre-operative results and documents have been reviewed as part of the pre-operative evaluation. 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 Vertigo Back pain Atrial fibrillation Type 2 diabetes mellitus Hypertension Hyperlipidemia Surgical History Surgical History S/P aneurysm repair with 3 stents 06/01/24 History of cardiac cath (~04/2024) 05/06/24 H/O cataract extraction History of hip replacement History of bunionectomy 2002 Family History Family History Mother Family history of throat cancer Father Cerebrovascular accident Sibling Dementia Social History Social History Smoking packs per day: 2 Smoking cigarettes per day: 40.0 Years smoked: 33 Smoking pack-years: 66.00 Smoking status: Former smoker Tobacco type: cigarettes Smoking end date: 10/14/97 Alcohol intake: current Drinks per week: 10 Alcohol use details: BEERS OR WINE Substance use: never Substance use type: does not use Living arrangements: with family Spiritual care concerns: No Anes - Eval Final PreProcedure Day of Procedure 12/15/24 12:00 Patient weight: obese Heart: regular rate and rhythm Lungs: clear to auscultation Airway: Mallampati scale class II Neurological: alert and oriented Last oral intake: >/= 8 hours ASA classification: IV Emergent: no Anesthetic plan: proceed Anesthesia type and monitoring: general GIVS and standard monitoring Results Review: All pre-operative results and documents have been reviewed as part of the pre-operative evaluation. Informed Consent: The patient's anesthetic plan and its attendant risks and benefits were discussed with the patient/family/POA. Questions were solicited and answers provided to the satisfaction of the patient/family/POA.
[2024-12-15] MEDS: ceFAZolin 2 GM/D5W 50 ML 2 GM/50 ML BAG IVPB (12:21)
[2024-12-15] MEDS: LIDOCAINE 2% GEL UROJET 10 ML PKG MUCOUS MEM (12:35)
--- NOTE | 2024-12-15 12:50 | W.PM.PROC2 ---
Procedure Note - Detailed Date of Procedure 12/15/24 Pre-op Diagnosis hematuria, bladder lesion Post-op Diagnosis Same Procedure Performed Cystoscopy with bladder biopsy and fulguration Surgeon Michael Huynh MD Anesthesia General Description of Procedure Patient was taken to the operative suite correctly identified. Once anesthesia was obtained was placed in dorsal lithotomy position and prepped and draped usual sterile fashion. Twenty-two Luxembourgish scope was inserted the bladder in direct vision. Prostate does have some lateral lobe hypertrophy. Upon entering the bladder there was 2+ trabeculation present. He has several areas of erythema along the posterior wall as well as the right lateral wall. Cold cup was used to take 3 biopsies. I fulgurated the base. There was good hemostasis. There were no papillary tumors. Bladder was drained. 2% viscous lidocaine was inserted into the urethra and patient was taken recovery stable condition. He will call for path results in 1 week. This completes dictation. Please send a copy of op note to my office Estimated Blood Loss 0 Drains No Packing No Pathology Yes Complications No immediate complications Condition Stable Disposition PACU
[2024-12-15 13:12] LABS: Glucose Point of Care 126 mg/dl (65-105)
[2024-12-15] MEDS: oxyCODONE HCL (*CRX) 5 MG TAB IR PO (14:15)
== END 2024-12-15 14:52 | disposition home or self-care (01) ==
PROVIDERS: PCP Internal Medicine; Visit Provider Urology
PROC: 0TBB8ZX Excision of Bladder, Via Natural or Artificial Opening Endoscopic, Diagnostic (ICD-10-PCS; CPT 52204; principal; 2024-12-15 13:00)
DX: N30.20 Other chronic cystitis without hematuria (principal); L53.9 Erythematous condition, unspecified; E78.5 Hyperlipidemia, unspecified; E11.9 Type 2 diabetes mellitus without complications; I10 Essential (primary) hypertension; I48.91 Unspecified atrial fibrillation; G47.30 Sleep apnea, unspecified; E66.9 Obesity, unspecified; Z68.34 Body mass index [BMI] 34.0-34.9, adult; Z79.01 Long term (current) use of anticoagulants; Z79.51 Long term (current) use of inhaled steroids; Z79.84 Long term (current) use of oral hypoglycemic drugs; Z98.890 Other specified postprocedural states; Z98.61 Coronary angioplasty status; Z87.891 Personal history of nicotine dependence; Z86.79 Personal history of other diseases of the circulatory system; Z80.1 Family history of malignant neoplasm of trachea, bronchus and lung; Z82.49 Family history of ischemic heart disease and other diseases of the circulatory system
CPT/HCPCS: 52204; 82948; 88305; A9270; J0690; J1100; J2003; J2405; J2704; J7120

== ENCOUNTER 2025-02-13 11:55 | Emergency (ER) | payer MEDICARE, OTHER, SELFPAY ==
--- NOTE | 2025-02-13 12:12 | PC.NURSE ---
urine dip not done due to large amount of blood
[2025-02-13 12:15] VITALS: BP 117/71; PULSE 65; RESP 16; TEMP 36.7; O2SAT 100
--- NOTE | 2025-02-13 12:31 | ED.MALEGU ---
HPI - Male Genitourinary General Chief complaint: Urogenital-Male Stated complaint: Uti Symptoms Time Seen by Provider: 02/13/25 12:15 Source: patient Mode of arrival: ambulatory Limitations: no limitations History of Present Illness HPI Narrative: 79 yo M presents with c/o blood in urine since yesterday. Pt states urine in dark red. reports hx of 3 to 4 UTIs since october. Has been told he had blood in urine with past UTIs but states he has never been able to actually see it . pt is well appearing. Denies urinary frequency, urgency, dysuria. No ABD or back pain. Pt states that blood in urine scarred him so he drove home from [place] where he was visiting family. States i wanted to come somewhere that had my records . All systems reviewed and negative except as noted above. Related Data Home Medications ?Medication ?Instructions ?Recorded ?Confirmed ?Last Taken ?Type cyanocobalamin (vitamin B-12) 1,000 mcg PO DAILY 10/02/19 12/30/24 12/30/24 History 1,000 mcg capsule rivaroxaban 20 mg tablet (Xarelto) 20 mg PO QPM 10/02/19 12/30/24 12/29/24 History acetaminophen 325 mg tablet 650 mg PO Q6H PRN Pain 03/22/21 12/30/24 Unknown History (Tylenol) cholecalciferol (vitamin D3) 25 25 mcg PO DAILY 08/26/23 12/30/24 12/30/24 History mcg (1,000 unit) capsule ezetimibe 10 mg tablet 10 mg PO DAILY 10/23/23 12/30/24 12/30/24 History simvastatin 40 mg tablet 40 mg PO DAILY 10/23/23 12/30/24 12/30/24 History pioglitazone 15 mg tablet 15 mg PO DAILY 02/26/24 12/30/24 12/30/24 History sildenafil 100 mg tablet (Viagra) 100 mg PO DAILY PRN Sexual Activity 06/30/24 12/30/24 Unknown History cyclobenzaprine 10 mg tablet 10 mg PO TID 12/25/24 12/30/24 12/30/24 History semaglutide 0.25 mg or 0.5 mg (2 0.25 mg subcut WEEKLY 02/13/25 02/13/25 Unknown History mg/3 mL) subcutaneous pen injector (Ozempic) Allergies Allergy/AdvReac Type Severity Reaction Status Date / Time No Known Allergies Allergy Verified 02/13/25 12:07 Review of Systems Review of Systems: CONSTITUTIONAL: Denies fever, chills, or sweats. EYES: Denies visual changes, redness, or discharge. ENT: Denies rhinorrhea, congestion, sore throat, or otalgia. CARDIOVASCULAR: Denies chest pain, palpitations, or edema. RESPIRATORY: Denies cough or dyspnea. GASTROINTESTINAL: Denies abdominal pain, nausea, vomiting, or diarrhea. GENITOURINARY: Denies dysuria. Reports hematuria. SKIN: Denies rash or itching. MUSCULOSKELETAL: Denies back pain, joint pain, or myalgia. NEUROLOGIC: Denies headache, numbness, or weakness. PSYCHIATRIC: Denies anxiety or depression. All other systems reviewed are negative, except as documented in HPI. 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 Vertigo Back pain Atrial fibrillation Type 2 diabetes mellitus Hypertension Hyperlipidemia Surgical History Surgical History S/P aneurysm repair with 3 stents 06/01/24 History of cardiac cath (~04/2024) 05/06/24 H/O cataract extraction History of hip replacement History of bunionectomy 2002 Family History Family History Mother Family history of throat cancer Father Cerebrovascular accident Sibling Dementia Social History Social History Smoking packs per day: 2 Smoking cigarettes per day: 40.0 Years smoked: 33 Smoking pack-years: 66.00 Smoking status: Former smoker Tobacco type: cigarettes Smoking end date: 10/14/97 Alcohol intake: current Drinks per week: 10 Alcohol use details: BEERS OR WINE Substance use: never Substance use type: does not use Living arrangements: with family Spiritual care concerns: No Comments At time of signature, agree with nursing past medical, surgical, social and family history. There is no relevant family history pertinent to the presenting complaint. Exam Narrative: GENERAL: This is a well-nourished, well-developed patient, in no apparent distress. HEAD: normocephalic, atraumatic. EYES: PERRL. Sclera clear/white. Vision is grossly intact. EARS: External ears normal NOSE: External nose normal NECK: Neck supple, non-tender without lymphadenopathy, masses or thyromegaly. CARDIOVASCULAR: Regular rate and rhythm without murmurs, gallops, or rubs. RESPIRATORY: Clear to auscultation. Breath sounds equal bilaterally. No wheezes, rales, or rhonchi. SKIN: warm, Dry, intact with no suspicious lesions or rash, good texture and turgor. NEURO: awake, alert, and oriented to person, place and time. There were no obvious focal neurologic abnormalities. EXTREMITIES: No joint tenderness, effusion, or edema noted. Course Course Level of Care: Express Care Visit Vital Signs Vital signs: Vital Signs Temperature 36.7 C 02/13/25 12:15 Pulse Rate 65 02/13/25 12:15 Respiratory Rate 16 02/13/25 12:15 Blood Pressure 117/71 02/13/25 12:15 Pulse Oximetry 100 02/13/25 12:15 Temperature 36.7 C 02/13/25 12:15 Pulse Rate 65 02/13/25 12:15 Respiratory Rate 16 02/13/25 12:15 Blood Pressure 117/71 02/13/25 12:15 Pulse Oximetry 100 02/13/25 12:15 Reviewed MDM - Male Genitourinary MDM Narrative Medical decision making narrative: Urine sample dark red. Unable to perform urinalysis due to color of urine. Urine culture ordered. Patient is well-appearing, nontoxic. Hemodynamically stable. Patient is not having any symptoms other than blood in urine. Will prescribe antibiotic today. Reviewed patient's past 3 urine cultures that grew Klebsiella pneumonia. Recommend he call Saturday and schedule follow-up appointment with urologist. Discussed reasons for patient to go to ER. Patient voiced understanding. Please be advised this is a medical document. It is intended for [id number] communication. It is written in medical language and may contain unfamiliar abbreviations or verbiage. Medical documents are intended to carry relevant information, facts as evident, and the clinical opinion of the practitioner at the time of the encounter. This report may have been done utilizing a voice recognition system. Attempts have been made to correct errors. However, there may be uncorrected grammatical, spelling, and recognition errors present. The file time of this note does not necessarily represent the time of service. Differential Diagnosis Differential diagnosis: Likely urinary tract infection Discharge Plan Discharge Clinical Impression: Hematuria Qualifiers: Hematuria type: unspecified type Qualified Code(s): R31.9 - Hematuria, unspecified Patient Disposition: Home Condition: Stable Instructions: Antibiotic Form, Hematuria (ED) Additional Instructions: Your urine was red today due to blood. We were not able to do a urinalysis due to the red color. A urine culture was ordered and results will take 48-72 hours. Take antibiotic as prescribed until gone. Drink at least 64 oz of water a day. Call and schedule a follow-up appointment with your urologist. If you have severe pain, fever, increase in blood in urine go to the ER. Patient Language: Urdu Prescriptions: New amoxicillin-pot clavulanate 875-125 mg tablet 1 tablet PO Q12H 10 Days Qty: 20 0RF No Action albuterol sulfate 90 mcg/actuation HFA aerosol inhaler 2 inh inhalation QID PRN (Reason: shortness of breath or wheezing) Qty: 8.5 0RF cyanocobalamin (vitamin B-12) 1,000 mcg capsule 1,000 mcg PO DAILY Xarelto 20 mg tablet 20 mg PO QPM acetaminophen [Tylenol] 325 mg tablet 650 mg PO Q6H MDD \ PRN (Reason: Pain) cholecalciferol (vitamin D3) 25 mcg (1,000 unit) capsule 25 mcg PO DAILY pioglitazone 15 mg tablet 15 mg PO DAILY simvastatin 40 mg tablet 40 mg PO DAILY ezetimibe 10 mg tablet 10 mg PO DAILY cyclobenzaprine 10 mg tablet 10 mg PO TID nitrofurantoin monohyd/m-cryst [Macrobid] 100 mg capsule 100 mg PO Q12H Patient Comments: 21 day supply Rx Instructions: must administer with a meal/food sildenafil [Viagra] 100 mg Tablet 100 mg PO DAILY PRN (Reason: Sexual Activity) Rx Instructions: administer 30 minutes to 4 hours before activity Jardiance 25 mg Tablet 25 mg PO DAILY (DME) FreeStyle Lite Strips Strip See Rx Instructions .ROUTE .MEDSUPPLY Qty: 100 3RF Rx Instructions: Use to test BS BID hydrochlorothiazide 25 mg tablet See Rx Instructions .ROUTE .COMPLEX Qty: 90 3RF Dose Instruction: TAKE 1 TABLET DAILY Rx Instructions: TAKE 1 TABLET DAILY metformin 1,000 mg tablet See Rx Instructions .ROUTE .COMPLEX Qty: 180 1RF Dose Instruction: TAKE 1 TABLET TWICE A DAY Rx Instructions: TAKE 1 TABLET TWICE A DAY amlodipine 5 mg tablet 5 mg PO DAILY Qty: 90 1RF lisinopril 40 mg tablet See Rx Instructions .ROUTE .COMPLEX Qty: 90 1RF Dose Instruction: TAKE 1 TABLET DAILY Rx Instructions: TAKE 1 TABLET DAILY Follow-up/Referrals: PHYSICIAN,SOFTWARE APPLICATIONS ARCHITECT [Primary Care Provider] - Time of Disposition: 12:26
== END 2025-02-13 12:35 | disposition home or self-care (01) ==
PROVIDERS: Emergency Provider Nurse Practitioner Family
DX: R31.9 Hematuria, unspecified (principal); Z87.891 Personal history of nicotine dependence; E11.9 Type 2 diabetes mellitus without complications; I10 Essential (primary) hypertension; E78.5 Hyperlipidemia, unspecified; I48.91 Unspecified atrial fibrillation; I25.10 Atherosclerotic heart disease of native coronary artery without angina pectoris; Z79.01 Long term (current) use of anticoagulants
CPT/HCPCS: 87086; 99213; G0463

== ENCOUNTER 2025-03-02 07:39 | Outpatient (RCR) | payer MEDICARE, OTHER, SELFPAY ==
[2024-12-30 12:59] VITALS: BMI 34.2
== END 2025-03-30 23:59 | disposition home or self-care (01) ==
LOC: ANHWOC 07:39
PROVIDERS: PCP Internal Medicine; Visit Provider Nurse Practitioner
DX: S31.809A Unspecified open wound of unspecified buttock, initial encounter (principal)
CPT/HCPCS: 99213; G0463

== ENCOUNTER 2025-03-15 16:42 | Emergency (ER) | payer MEDICARE, OTHER, SELFPAY ==
--- NOTE | 2025-03-15 16:51 | ED_ITS ---
HPI - URI/Sore Throat General Chief Complaint: Upper Respiratory Infection Stated Complaint: Chest Congestion/Runny Nose Source: patient Mode of arrival: ambulatory Limitations: no limitations History of Present Illness HPI Narrative: Patient is a 79 year old male who presents to the clinic for complaints of wheezing, coughing up mucus, and has nasal congestion x 3 days. She states he has been taking cough drops. Denies any difficulty swallowing, nausea, vomiting, diarrhea, fevers, or body aches. Related Data Home Medications ?Medication ?Instructions ?Recorded ?Confirmed ?Last Taken ?Type cyanocobalamin (vitamin B-12) 1,000 mcg PO DAILY 10/02/19 03/15/25 12/30/24 History 1,000 mcg capsule rivaroxaban 20 mg tablet (Xarelto) 20 mg PO QPM 10/02/19 03/15/25 12/29/24 History acetaminophen 325 mg tablet 650 mg PO Q6H PRN Pain 03/22/21 03/15/25 Unknown History (Tylenol) cholecalciferol (vitamin D3) 25 25 mcg PO DAILY 08/26/23 03/15/25 12/30/24 History mcg (1,000 unit) capsule ezetimibe 10 mg tablet 10 mg PO DAILY 10/23/23 03/15/25 12/30/24 History simvastatin 40 mg tablet 40 mg PO DAILY 10/23/23 03/15/25 12/30/24 History pioglitazone 15 mg tablet 15 mg PO DAILY 02/26/24 03/15/25 12/30/24 History sildenafil 100 mg tablet (Viagra) 100 mg PO DAILY PRN Sexual Activity 06/30/24 03/15/25 Unknown History cyclobenzaprine 10 mg tablet 10 mg PO TID 12/25/24 03/15/25 12/30/24 History semaglutide 0.25 mg or 0.5 mg (2 0.25 mg subcut WEEKLY 02/13/25 03/15/25 Unknown History mg/3 mL) subcutaneous pen injector (Ozempic) albuterol sulfate 90 mcg/actuation 2 puff inhalation Q8H 03/15/25 03/15/25 Unknown History aerosol inhaler Allergies Allergy/AdvReac Type Severity Reaction Status Date / Time No Known Allergies Allergy Verified 03/15/25 16:47 Review of Systems Review of Systems: CONSTITUTIONAL: Denies body aches, fever, chills, or sweats. EYES: Denies visual changes, redness, or discharge. ENT: Reports rhinorrhea and congestion. Denies sore throat or otalgia. CARDIOVASCULAR: Denies chest pain, palpitations, or edema. RESPIRATORY: Reports cough and dyspnea. GASTROINTESTINAL: Denies abdominal pain, nausea, vomiting, or diarrhea. GENITOURINARY: Denies dysuria or hematuria. SKIN: Denies rash, itching, or wounds. MUSCULOSKELETAL: Denies back pain, joint pain, or myalgia. NEUROLOGIC: Denies headache, numbness, tingling, or weakness. PSYCH: Denies depression or anxiety. 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 Vertigo Back pain Atrial fibrillation Type 2 diabetes mellitus Hypertension Hyperlipidemia Surgical History Surgical History S/P aneurysm repair with 3 stents 06/01/24 History of cardiac cath (~04/2024) 05/06/24 H/O cataract extraction History of hip replacement History of bunionectomy 2002 Family History Family History Mother Family history of throat cancer Father Cerebrovascular accident Sibling Dementia Social History Social History Smoking packs per day: 2 Smoking cigarettes per day: 40.0 Years smoked: 33 Smoking pack-years: 66.00 Smoking status: Former smoker Tobacco type: cigarettes Smoking end date: 10/14/97 Alcohol intake: current Drinks per week: 10 Alcohol use details: BEERS OR WINE Substance use: never Substance use type: does not use Living arrangements: with family Spiritual care concerns: No Comments At time of signature, I have reviewed and agree with nursing past medical, surgical, social and family history unless otherwise noted. Please see nursing chart for further information. There is no relevant family history pertinent to the presenting complaint. Exam Narrative: GENERAL: Well-appearing, well-nourished, and in no acute distress. EYES: EOMI. No redness or drainage. Conjunctivae normal. ENT: Mucous membranes pink and moist. Nares clear. No rhinorrhea. TMs fluid filled, but intact. No Throat Erythema or tonsillar exudate, uvula midline. Nasal congestion noted. NECK: Normal AROM. Supple. No lymphadenopathy. CHEST: No respiratory distress. Wheezing noted to right lobes on expiration during auscultation. HEART: Regular rate and rhythm. No murmur appreciated. Normal peripheral pulses. ABDOMEN: Soft, nontender, nondistended, normal active bowel sounds. SKIN: Warm, dry, no rash. Capillary refill normal. Normal skin turgor. NEURO: No focal deficits. Alert and oriented x3. Gait steady. PSYCH: Normal affect. No signs of depression or anxiety. Course Course Level of Care: Express Care Visit MDM - URI/Sore Throat MDM Narrative Medical decision making narrative: Discussed physical exam findings. Steroid given for wheezing. Patient denied albuterol inhaler as he has one at home. Advised supportive measures and signs/symptoms to go to the ER. Pt is appropriate for outpt treatment and follow up. Differential Diagnosis Differential diagnosis: Likely upper respiratory infection, sinusitis, viral infection and bronchitis Critical Care Time Critical Care Time Critical Care Time: No Discharge Plan Discharge Clinical Impression: Cough Qualifiers: Cough type: acute Qualified Code(s): R05.1 - Acute cough Patient Disposition: Home Condition: Stable Instructions: Acute Cough (ED) Additional Instructions: Take steroid as prescribed. Recommend Flonase spray and Zyrtec (or Claritin/Josi) over the counter Cough syrup may cause drowsiness; avoid driving or take it at night time. Symptomatic treatment includes: rest, fluids, and increase humidity of the air at home. Follow up with your primary care provider in 1 week. Go to the ER for worsening symptoms or concerns. Patient Language: Arabic Prescriptions: New prednisone 20 mg tablet See Rx Instructions .Route .COMPLEX Qty: 9 0RF Rx Instructions: 40mg x 3 days, 20mg x 3 days No Action Ozempic 0.25 mg or 0.5 mg (2 mg/3 mL) pen injector 0.25 mg subcut WEEKLY Rx Instructions: for 4 weeks albuterol sulfate 90 mcg/actuation HFA aerosol inhaler 2 puff INHALATION Q8H cyanocobalamin (vitamin B-12) 1,000 mcg capsule 1,000 mcg PO DAILY Xarelto 20 mg tablet 20 mg PO QPM acetaminophen [Tylenol] 325 mg tablet 650 mg PO Q6H MDD \ PRN (Reason: Pain) cholecalciferol (vitamin D3) 25 mcg (1,000 unit) capsule 25 mcg PO DAILY pioglitazone 15 mg tablet 15 mg PO DAILY simvastatin 40 mg tablet 40 mg PO DAILY ezetimibe 10 mg tablet 10 mg PO DAILY cyclobenzaprine 10 mg tablet 10 mg PO TID sildenafil [Viagra] 100 mg Tablet 100 mg PO DAILY PRN (Reason: Sexual Activity) Rx Instructions: administer 30 minutes to 4 hours before activity (DME) FreeStyle Lite Strips Strip See Rx Instructions .ROUTE .MEDSUPPLY Qty: 100 3RF Rx Instructions: Use to test BS BID hydrochlorothiazide 25 mg tablet See Rx Instructions .ROUTE .COMPLEX Qty: 90 3RF Dose Instruction: TAKE 1 TABLET DAILY Rx Instructions: TAKE 1 TABLET DAILY metformin 1,000 mg tablet See Rx Instructions .ROUTE .COMPLEX Qty: 180 1RF Dose Instruction: TAKE 1 TABLET TWICE A DAY Rx Instructions: TAKE 1 TABLET TWICE A DAY amlodipine 5 mg tablet 5 mg PO DAILY Qty: 90 1RF lisinopril 40 mg tablet See Rx Instructions .ROUTE .COMPLEX Qty: 90 1RF Dose Instruction: TAKE 1 TABLET DAILY Rx Instructions: TAKE 1 TABLET DAILY Follow-up/Referrals: PHYSICIAN,VASCULAR SURGERY PHYSICIAN [Primary Care Provider] - Time of Disposition: 17:00
[2025-03-15 16:52] VITALS: BP 135/110; PULSE 81; RESP 16; TEMP 36.7; O2SAT 100
== END 2025-03-15 17:05 | disposition home or self-care (01) ==
DX: R05.1 Acute cough (principal); Z87.891 Personal history of nicotine dependence; I48.91 Unspecified atrial fibrillation; E11.9 Type 2 diabetes mellitus without complications; Z79.84 Long term (current) use of oral hypoglycemic drugs; Z79.85 Long-term (current) use of injectable non-insulin antidiabetic drugs; I10 Essential (primary) hypertension; E78.5 Hyperlipidemia, unspecified; I25.10 Atherosclerotic heart disease of native coronary artery without angina pectoris; Z79.01 Long term (current) use of anticoagulants
CPT/HCPCS: 99213; G0463